=== PATIENT | male | born 1970 | race Caucasian/White ===

== ENCOUNTER 2023-10-28 15:54 | Outpatient (CLI) | payer MEDICAID | END 2023-10-28 23:59 | disposition home or self-care (01) | LOC: RAD 15:54 | PROVIDERS: ATTEND Family Medicine | DX: S60.552A Superficial foreign body of left hand, initial encounter (principal); X58.XXXA Exposure to other specified factors, initial encounter; Y93.89 Activity, other specified; Y92.89 Other specified places as the place of occurrence of the external cause; Y99.8 Other external cause status | CPT/HCPCS: 73130 ==